=== PATIENT | male | born 1995 | race Caucasian/White ===

== ENCOUNTER 2021-05-06 03:22 | Emergency (ER) | payer OTHER ==
[~2021-05-06] VITALS: Ht 177.8 cm; Wt 77.1 kg
[2021-05-06] MEDS ORDERED: BUSPIRONE HCL10 MG PO ×2 (03:56→05:51)
[2021-05-06] MEDS ORDERED: ALPRAZOLAM ER1 MG PO ×2 (03:56→05:51)
[2021-05-06 04:18] VITALS: BP 145/93
== END 2021-05-06 04:18 | disposition home or self-care (01) ==
LOC: M.ERS 03:22
DX: S39.012A Strain of muscle, fascia and tendon of lower back, initial encounter (principal); F31.9 Bipolar disorder, unspecified; F41.9 Anxiety disorder, unspecified; F90.9 Attention-deficit hyperactivity disorder, unspecified type; I10 Essential (primary) hypertension; F17.210 Nicotine dependence, cigarettes, uncomplicated; X50.9XXA Other and unspecified overexertion or strenuous movements or postures, initial encounter; Y93.89 Activity, other specified; Y92.89 Other specified places as the place of occurrence of the external cause; Y99.8 Other external cause status